=== PATIENT | male | born 1990 | race Two or more races ===

== ENCOUNTER 2020-05-30 12:15 | Emergency (ER) | payer SELFPAY ==
[2020-05-30 12:16] VITALS: BP 151/82; PULSE 72; RESP 19; TEMP 36.8; O2SAT 99; BMI 25.8
--- NOTE | 2020-05-30 12:43 | CT_ITS ---
PROCEDURE: CT ABDOMEN W CON CLINICAL HISTORY: Left-sided abdominal pain, mid epigastric pain COMPARISON: No exams were available for comparison TECHNIQUE: 75 mL Optiray 350 IV Axial images obtained with sagittal and coronal reformats. All CT scans at the facility use one or more dose reduction, viz: automated exposure control, ma/kV adjustment per patient size (including targeted exams where dose is matched to indication, i.e. head), or iterative reconstruction technique. FINDINGS: The lung bases are clear. The liver, gallbladder, spleen, adrenal glands, pancreas, and kidneys have an unremarkable appearance. No renal or ureteral calculi. There is some mild generalized motion artifact. No evidence of appendicitis. No intestinal obstruction or free air. No pelvic mass or abnormal fluid collection. No acute bony findings. IMPRESSION: No acute finding Dictated by: Tay Cardenas MD 05/30/2020 13:35 Tay Cardenas MD in [place] 05/30/2020 13:35
[2020-05-30 12:51] LABS: Microscopic, Urine URINE MICROSCOPIC (MICROSCOPIC)
[2020-05-30 12:53] LABS: Appearance,Urine CLEAR (Clear); Bilirubin,Urine Negative (Negative); Blood, Urine Negative (Negative); Color,Urine YELLOW (Yellow); Glucose,Urine (UA) Negative (Negative); Ketones,Urine Negative (Negative); Leukocyte Esterase,Urine Negative (Negative); Nitrate,Urine Negative (Negative); Protein,Urine Negative (Negative); Specific Gravity, Urine <= 1.005 (1.005-1.030); Urobilinogen,Urine 0.2 EU/dl (0.2)
[2020-05-30 12:54] LABS: Chloride 99 mmol/L (98-107); Potassium 4.1 mmoL/L (3.5-5.1); Sodium 139 mmol/L (136-145)
[2020-05-30 12:56] LABS: Blood Urea Nitrogen 14 mg/dl (9-20); Creatinine Clearance Estimated 154 mL/min (50-200); Estimated Glomerular Filt Rate 115 ml/min (>60); GFR (African American) 139 ML/MIN (>60)
[2020-05-30 12:57] LABS: Alanine Aminotransferase 27 U/L (12-78); Albumin Level 4.7 g/dl (3.5-5.0); Albumin/Globulin Ratio 1.6 (1.1-1.8); Alkaline Phosphatase 91 U/L (38-126); Anion Gap 11.1 mEq/L (5-15); Aspartate Amino Transferase 36 U/L (17-59); Bilirubin,Total 0.5 mg/dl (0.2-1.3); Calcium 9.8 mg/dl (8.4-10.2); Carbon Dioxide 33 mmol/L (22.0-30.0); Glucose 101 mg/dl (74-100); Total Protein,Serum 7.7 g/dl (6.3-8.2)
[2020-05-30 12:59] LABS: Basophils % 0.7 % (0.1-2.0); Eosinophils # 0.2 K/mm3 (0.0-0.4); Eosinophils % 3.6 % (0.1-12.0); Hematocrit 46.1 % (42.0-52.0); Hemoglobin 14.8 g/dL (14.1-18.0); Lymphocytes % 40.6 % (10-50); Mean Corpuscular HGB Conc 32.1 g/dL (31.8-35.4); Mean Corpuscular Hemoglobin 29.4 pg (27.0-31.2); Mean Corpuscular Volume 91.4 fl (80-94); Mean Platelet Volume 7.4 fl (7.4-10.4); Monocytes # 0.3 K/mm3 (0.1-1.0); Monocytes % 7.1 % (1.7-9.3); Neutrophils # 2.3 K/mm3 (1.8-7.8); Platelet Count 174 K/mm3 (142-424); Red Blood Count 5.05 M/mm3 (4.60-6.20); Red Cell Distribution Width 12.5 % (11.5-17.5); White Blood Count 4.8 K/mm3 (4.8-10.8)
--- NOTE | 2020-05-30 13:13 | HMH.EDGENADL ---
ED Disposition Clinical Impression: Left lower quadrant abdominal pain Disposition: Home, Self-Care Condition on Discharge: Good Instructions: DI for Abdominal Pain-Adult Additional Instructions: Ibuprofen or Tylenol for pain. You are being provided with a list of physicians available for follow-up of your condition. Please call a physician on this list to arrange a follow-up appointment as soon as possible. Additional instructions for ABDOMINAL PAIN: Return immediately if worsening abdominal pain, vomiting, shortness of breath, fever, vomiting of blood or abdominal distention. Referrals: PCP,No [Primary Care Provider] - - Critical Care Critical Care Time: No Attestation: On , the high probability of a clinically significant, sudden or life threatening deterioration of the following system(s) required my full and direct attention, intervention and personal management. The time I documented below is in addition to time spent performing reported procedures but includes the following listed in this critical care notation. Medical Decision Making - Monster Inquiry Pt receiving controlled substance: No Vital Signs: 05/30/20 12:16 Temperature 98.2 F Temperature Source Oral Pulse Rate [Left Radial] 72 Respiratory Rate 19 Blood Pressure [Right Arm] 151/82 H Blood Pressure Mean [Right Arm] 105 Blood Pressure Source [Right Arm] Automatic Cuff Blood Pressure Position [Right Arm] Sitting 02 Sat by Pulse Oximetry 99 Oxygen Delivery Method Room Air - Lab Data Lab Results 05/30/20 12:32: Urine Color Yellow, Urine Appearance Clear, Urine pH 6.0, Ur Specific [place] <= 1.005, Urine Protein Negative, Urine Glucose (UA) Negative, Urine Ketones Negative, Urine Blood Negative, Urine Nitrate Negative, Urine Bilirubin Negative, Urine Urobilinogen 0.2, Ur Leukocyte Esterase Negative, Urine WBC 3-5, Ur Squamous Epith Cells Occasional 05/30/20 12:32: WBC 4.8, RBC 5.05, Hgb 14.8, Hct 46.1, MCV 91.4, MCH 29.4, MCHC 32.1, RDW 12.5, Plt Count 174, MPV 7.4, Neut % (Auto) 48.0, Lymph % (Auto) 40.6, [place] % (Auto) 7.1, Eos % (Auto) 3.6, Baso % (Auto) 0.7, Neut # (Auto) 2.3, Lymph # (Auto) 2.0, [place] # (Auto) 0.3, Eos # (Auto) 0.2, Baso # (Auto) 0.0 05/30/20 12:32: Sodium 139, Potassium 4.1, Chloride 99, Carbon Dioxide 33 H, Anion Gap 11.1, BUN 14, Creatinine 0.80, Estimated Creat Clear 154, Estimated GFR 115, Est GFR ( Amer) 139, Glucose 101 H, Calcium 9.8, Total Bilirubin 0.5, AST 36, ALT 27, Alkaline Phosphatase 91, Total Protein 7.7, Albumin 4.7, Globulin 3.0, Albumin/Globulin Ratio 1.6 05/30/20 12:32: Amylase 79, Lipase 87 Result diagrams: 05/30/20 12:32 05/30/20 12:32 Orders (Tests/Meds): ED MEDICATIONS Discontinued Medications Generic Name Dose Route Start Last Admin Trade Name Freq PRN Reason Stop Dose Admin Sodium Chloride 1,000 mls @ 999 mls/hr 05/30/20 12:45 05/30/20 12:48 Sod Chlor 0.9% 1000ml Bag IV 05/30/20 13:45 999 mls/hr .Q1H1M RIYA Administration Iopamidol 75 ml 05/30/20 12:59 05/30/20 12:59 Iopamidol-370 (76%);100ml Bottle IV 05/30/20 13:00 75 ml ONCE ONE Administration Ketorolac Tromethamine 30 mg 05/30/20 12:43 05/30/20 12:48 Ketorolac 30mg/Ml Vial IV 05/30/20 12:44 30 mg ONCE ONE Administration Ondansetron HCl 4 mg 05/30/20 12:43 05/30/20 12:48 Ondansetron 4mg/2ml Vial IV 05/30/20 12:44 4 mg ONCE ONE Administration - CT Data CT Scan: Abdomen, Pelvis Time Received: 13:[address] Reviewed: Yes: I have viewed the radiologist's interpretation Findings Narrative: PROCEDURE: CT ABDOMEN W CON CLINICAL HISTORY: Left-sided abdominal pain, mid epigastric pain COMPARISON: No exams were available for comparison TECHNIQUE: 75 mL Optiray 350 IV Axial images obtained with sagittal and coronal reformats. All CT scans at the facility use one or more dose reduction, viz: automated exposure control, ma/kV adjustment per patient size (including
[2020-05-30 13:19] LABS: Squamous Epithelial Cell,Urine Occasional #/hpf (0-5)
[2020-05-30 13:28] LABS: Amylase 79 U/L (30-110); Lipase 87 U/L (23-300)
[2020-05-30 14:21] VITALS: BP 122/76; PULSE 63; RESP 16; TEMP 36.8; O2SAT 100
== END 2020-05-30 14:21 | disposition home or self-care (01) ==
PROVIDERS: Emergency Provider Emergency Medicine
DX: R10.32 Left lower quadrant pain (principal)
CPT/HCPCS: 74177; 80053; 81001; 82150; 83690; 85025; 96365; 96375; 99283; J2405; Q9967

== ENCOUNTER 2020-07-06 12:04 | Emergency (ER) | payer MEDICAID, SELFPAY ==
[2020-07-06 12:59] VITALS: BP 113/76; PULSE 72; RESP 18; TEMP 36.9; O2SAT 98; BMI 25.8
--- NOTE | 2020-07-06 13:09 | HMH.EDUTC ---
[facility] [place] Disposition Clinical Impression: Rash Disposition: Home, Self-Care Condition on Discharge: Good Instructions: DI for Rash, Hydrocortisone Topical, Diphenhydramine Additional Instructions: Use cream as prescribed, apply to rash on upper back and hands as prescribed Follow up with Family Doctor or Dermatology if no improvement or any worsening of symptoms Over the counter Benadryl may help with itching Return if needed Straight to ER if any life threatening symptoms Prescriptions: Hydrocortisone [Hydrocortisone 2.5% Cream 28gm Tube] 1 applicatio TP BID #1 tube Transmission Status: Pending to [facility] Referrals: Arjun Oconnor MD [Primary Care Provider] - As needed Time of Disposition: 13:14 Medical Decision Making - Monster Inquiry Pt receiving controlled substance: No Monster was queried for this patient: No Vital Signs: 07/06/20 12:59 Temperature 98.4 F Temperature Source Oral Pulse Rate [Radial] 72 Respiratory Rate 18 Blood Pressure [Right Arm] 113/76 Blood Pressure Mean [Right Arm] 88 Blood Pressure Source [Right Arm] Automatic Cuff Blood Pressure Position [Right Arm] Sitting 02 Sat by Pulse Oximetry 98 Oxygen Delivery Method Room Air [facility] [place] HPI - General Stated complaint: Rash on back Time Seen by Provider: 07/06/20 13:09 Mode of Arrival: Ambulatory Source of Information: Patient Limitations: No Limitations Description of Symptoms (Recalled from Triage Doc. by RN): rash on hands, back and penis x 3 days HEENT Symptoms (Recalled from RN notes): No Resp Symptoms (Recalled from RN notes): No Skin Symptoms (Recalled from RN notes): Yes MS Symptoms (Recalled from RN notes): No Functional Status (Recalled from RN notes): wnl - History of Present Illness Provider Complaint: Patient commuication done with interpretur States that he has had rash on his hands and upper back for over a week States that rash is itchy and not got any better States that he was seen in ED about a month ago for lower abd pain and pain in his penis and didnt know if he needed to follow up today for that or not but that is better he is here today for the rash on his back and hands - Related Data Previous Rx's Medication Instructions Recorded Hydrocortisone [Hydrocortisone 1 applicatio TP BID #1 tube 07/06/20 2.5% Cream 28gm Tube] Allergies Allergy/AdvReac Type Severity Reaction Status Date / Time No Known Allergies Allergy Verified 05/30/20 12:43 - Worker's Comp Is this a Worker's Comp case?: No [facility] History - Hepatitis A Screen Drug use history?: No High risk sexual behaviors?: No History of sexually transmitted infection?: No Currently employed?: No Childcare worker?: No Do you have indoor plumbing?: Yes Do you have electricity?: Yes Attestation statement:: This patient has been screened for Hepatitis A risk factors. I have reviewed the patient's past medical history: Yes Medical History: Denies:: Diabetes Mellitus Type 1, Diabetes Mellitus Type 2 - Social History Alcohol Intake: never Alcohol Intake Frequency:: 0-2 drinks per day Occupational Status: other Housing: house ROS Obtained: Yes All systems reviewed & no additional complaints, Yes Systems reviewed as appropriate & no additional complaints - Constitutional Constitutional: Reports system reviewed and no additional complaints, except as docu - Integumentary/Breasts Skin/Breast: Reports itching, Reports rash Physical Exam - General General appearance: alert, in no apparent distress - Respiratory Respiratory exam: Present: normal lung sounds bilaterally. Absent: respiratory distress - Cardiovascular Cardiovascular exam: Present: regular rate, normal rhythm. Absent: JVD - Back Exam Back 1 view image: 1 - small red patchy like rash that patient describes as itchy no open lesions noted appears like dermatitis - Neurological
[2020-07-06 13:32] VITALS: BP 113/76; PULSE 72; RESP 18; TEMP 36.9; O2SAT 98
== END 2020-07-06 13:33 | disposition home or self-care (01) ==
PROVIDERS: Emergency Provider Nurse Practitioner; PCP Family Medicine
DX: R21 Rash and other nonspecific skin eruption (principal)
CPT/HCPCS: 99201

== ENCOUNTER 2020-08-02 10:34 | Emergency (ER) | payer MEDICAID, SELFPAY ==
[2020-08-02 10:52] VITALS: BP 129/84; PULSE 64; RESP 19; TEMP 36.9; O2SAT 99; BMI 25.5
[2020-08-02 11:11] LABS: Apearance,Urine Clear (Clear); Color,Urine Yellow (Yellow)
[2020-08-02 11:12] LABS: Bilirubin,Urine Negative (Negative); Blood, Urine Negative (Negative); Glucose,Urine (UA) Negative (Negative); Ketones,Urine Negative (Negative); Protein,Urine Negative (Negative); Specific Gravity, Urine 1.025 (1.005-1.030); UTC Leukocyte Esterase,Urine Negative (Negative); UTC Nitrate,Urine Negative (Negative); Urobilinogen,Urine 0.2 EU/dl (0.2)
--- NOTE | 2020-08-02 11:26 | HMH.EDUTC ---
[facility] [place] Disposition Clinical Impression: Yeast infection Disposition: Home, Self-Care Condition on Discharge: Good Instructions: Fluconazole Additional Instructions: Take medication as prescribed *Make sure to follow up for your test results. They was sent out and should be back in 5-7 days Follow up with Urology or your Family Doctor for further evaluation or examination Straight to ER if any life threatening symptoms Prescriptions: Fluconazole [Diflucan 150mg tab] 150 mg PO DIRECTED #2 tab Transmission Status: Received by [facility] Referrals: Arjun Oconnor MD [Primary Care Provider] - As needed Popeye Napier MD [Staff Physician] - As needed (Call office for appointment) Time of Disposition: 11:42 Medical Decision Making - Monster Inquiry Pt receiving controlled substance: No Monster was queried for this patient: No Vital Signs: 08/02/20 10:52 08/02/20 11:42 Temperature 98.4 F 98.4 F Temperature Source Oral Pulse Rate 64 Pulse Rate [Right Brachial] 64 Respiratory Rate 19 19 Blood Pressure 129/84 Blood Pressure [Right Arm] 129/84 Blood Pressure Mean [Right Arm] 99 Blood Pressure Source [Right Arm] Automatic Cuff Blood Pressure Position [Right Arm] Sitting 02 Sat by Pulse Oximetry 99 Oxygen Delivery Method Room Air - Lab Data Lab results reviewed: Yes: I reviewed the patient's lab results. Lab Results 08/02/20 11:10: Urine Color Yellow, Urine Appearance Clear, Urine pH 6.0, Ur Specific [place] 1.025, Urine Protein Negative, Urine Glucose (UA) Negative, Urine Ketones Negative, Urine Blood Negative, Urine Nitrate Negative, Urine Bilirubin Negative, Urine Urobilinogen 0.2, Ur Leukocyte Esterase Negative [facility] [place] HPI - General Stated complaint: testicles/penis partida Time Seen by Provider: 08/02/20 10:55 Mode of Arrival: Ambulatory Source of Information: Patient Limitations: No Limitations Description of Symptoms (Recalled from Triage Doc. 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, Patient states that on and off for about 2 month he has been having some a burning like pain inside his penis and tip got red and dry State that it partida all the time and sometimes feels itchy States that he thought he may have had a UTI and wanted to get checked - Related Data Previous Rx's Medication Instructions Recorded Fluconazole [Diflucan 150mg tab] 150 mg PO DIRECTED #2 tab 08/02/20 Allergies Allergy/AdvReac Type Severity Reaction Status Date / Time No Known Allergies Allergy Verified 05/30/20 12:43 - Worker's Comp Is this a Worker's Comp case?: No [facility] History - Hepatitis A Screen Drug use history?: No High risk sexual behaviors?: No History of sexually transmitted infection?: No Currently employed?: No Childcare worker?: No Do you have indoor plumbing?: Yes Do you have electricity?: Yes Attestation statement:: This patient has been screened for Hepatitis A risk factors. I have reviewed the patient's past medical history: Yes Medical History: Denies:: Diabetes Mellitus Type 1, Diabetes Mellitus Type 2 - Social History Alcohol Intake: never Alcohol Intake Frequency:: 0-2 drinks per day Occupational Status: other Housing: house ROS Obtained: Yes All systems reviewed & no additional complaints, Yes Systems reviewed as appropriate & no additional complaints - Constitutional Constitutional: Reports system reviewed and no additional complaints, except as docu, Denies body ache, Denies chills, Denies fever(s) - Eyes Eyes: Reports system reviewed and no additional complaints, except as docu - Respiratory Respiratory: Y
[2020-08-02 11:42] VITALS: BP 129/84; PULSE 64; RESP 19; TEMP 36.9; O2SAT 99
[2020-08-08 10:26] LABS: Neisseria gonorrhoeae, NAA Negative (Negative)
== END 2020-08-02 11:45 | disposition home or self-care (01) ==
PROVIDERS: Emergency Provider Nurse Practitioner; PCP Family Medicine
DX: B37.49 Other urogenital candidiasis (principal)
CPT/HCPCS: 81003; 87491; 87591; 99201